=== PATIENT | male | born 1975 | race Caucasian/White ===

== ENCOUNTER 2020-04-04 07:58 | Inpatient (IN) | payer MEDICAID, SELFPAY ==
[~2020-04-04] VITALS: Ht 170.2 cm; Wt 86.3 kg
[2020-04-04] VITALS (7 sets, daily range): BP systolic 113–132; BP diastolic 52–80
--- NOTE | 2020-04-04 08:02 | NUR ---
DR Wilhelm at the bedside for MSE.
[2020-04-04] MEDS ORDERED: NALOXONE HCL 0.4 MG/ML AMPUL ONE ×2 (08:07→08:26)
[2020-04-04] MEDS ORDERED: NALOXONE HCL 0.4 MG/ML AMPUL IV ONE ×3 (08:15→09:00)
[2020-04-04] MEDS ORDERED: ALBUTEROL SULFATE 2.5 MG/3 ML NEBU NEB ONE ×3 (08:15→12:45)
[2020-04-04] MEDS ORDERED: ONDANSETRON 4 MG/2 ML VIAL IV ONE (08:15)
[2020-04-04] MEDS ORDERED: NALOXONE HCL 8 MG in IV NORMAL SALINE 230 ML IV PRN ×2 (08:15→11:30)
[2020-04-04] MEDS ORDERED: ONDANSETRON 4 MG/2 ML VIAL ONE (08:16)
--- NOTE | 2020-04-04 08:20 | NUR ---
Pt is responsive to painful stimuli.
--- NOTE | 2020-04-04 08:33 | NUR ---
After 2nd dose of Narcan, pt coughing up sputum and is more awake.
[2020-04-04 08:40] LABS: ABG SITE RIGHT RADIAL
[2020-04-04 08:43] LABS: BASOPHILS % (AUTO) 0.6 % (0.0-2.0); EOSINOPHILS # (AUTO) 0.2 K/uL (0.0-0.7); EOSINOPHILS % (AUTO) 2.1 % (0.0-7.0); HEMATOCRIT 24.4 % (36.7-47.1); LYMPHOCYTES # (AUTO) 1.5 K/uL (20.0-40.0); LYMPHOCYTES % (AUTO) 18.5 % (20.5-51.5); MEAN CORPUSCULAR HEMOGLOBIN 30.6 uug (23.8-33.4); MEAN CORPUSCULAR HGB CONC 33 g/dL (32.5-36.3); MEAN CORPUSCULAR VOLUME 93.3 fL (73.0-96.2); MONOCYTES # (AUTO) 0.3 K/uL (2.0-10.0); MONOCYTES % (AUTO) 3.3 % (0.0-11.0); NEUTROPHILS # (AUTO) 6.2 K/uL (1.8-8.9); NEUTROPHILS % (AUTO) 75.5 % (38.5-71.5); PLATELET COUNT (AUTO) 169 K/uL (152-348); RED BLOOD CELL COUNT(AUTO) 2.62 MIL/uL (4.06-5.63); WHITE BLOOD COUNT (AUTO) 8.2 K/uL (3.6-10.2)
[2020-04-04] MEDS ORDERED: FUROSEMIDE 40 MG/4 ML VIAL IV ONE (08:45)
[2020-04-04] MEDS ORDERED: CLINDAMYCIN PHOSPHATE IV 600 MG in IV DEXTROSE 5% 100 ML IV ONE (08:45)
[2020-04-04] MEDS ORDERED: levoFLOXacin 750 MG/D5W 150 ML PIGGYBACK IV ONE (08:45)
[2020-04-04 08:52] LABS: CARBON DIOXIDE 28 mmol/L (21-32); CHLORIDE 106 mmol/L (98-107); CREATININE 1.4 mg/dL (0.6-1.3); GLUCOSE 250 mg/dL (74-106); POTASSIUM 4.2 mmol/L (3.5-5.1); UREA NITROGEN, BLOOD 18 mg/dL (7-18)
[2020-04-04] MEDS ORDERED: NALOXONE 2 MG/2 ML SYRINGE ONE (08:52)
[2020-04-04] MEDS: NALOXONE HCL 4 MG in IV NORMAL SALINE 246 ML IV PRN ×2 (08:53→10:25)
[2020-04-04] MEDS ORDERED: FUROSEMIDE 40 MG/4 ML VIAL ONE (08:53)
--- NOTE | 2020-04-04 08:57 | NUR ---
PT RECEIVED ON 100% NRB FOR POSSIBLE ASPIRATION AND OVERDOSE. PT GIVEN HHN TX BLOW BY WITH NRB. ABG DONE AND RESULTS ENDORSED TO DR OCHOA. PER DR OCHOA, FOLLOW UP ABG TO BE DONE AND CONTINUOUS HHN TO BE ADMINISTERED. WILL CONTINUE TO MONITOR
[2020-04-04 08:58] LABS: ALANINE AMINOTRANSFERASE 43 U/L (16-63); ALKALINE PHOSPHATASE 66 U/L (50-136); ASPARTATE AMINOTRANSFERASE 30 U/L (15-37); BILIRUBIN,DIRECT 0.1 mg/dL (0.0-0.2); BILIRUBIN,TOTAL 0.2 mg/dL (0.2-1.0); ETHANOL < 3 MG/DL (0-0); TOTAL PROTEIN, SERUM 7.4 g/dL (6.4-8.2)
[2020-04-04 08:59] LABS: ACETAMINOPHEN < 2.0 ug/mL (10-30)
--- NOTE | 2020-04-04 09:03 | NUR ---
Pt is more awake and able to follow simple directions.
--- NOTE | 2020-04-04 09:05 | NUR ---
After 0900, 3rd dose of Narcan. pt is more awake and verbally responsive.
[2020-04-04 09:08] LABS: *BILIRUBIN,URIN NEGATIVE (NEGATIVE); *BLOOD, URINE 1+ (NEGATIVE); *CLARITY,URINE SLIGHTLY CLOUDY (CLEAR); *COLOR,URINE YELLOW (YELLOW); *KETONES,URINE NEGATIVE (NEGATIVE); *UROBILINOGEN,URINE 0.2 E.U./dl (NORMAL); LEUKOCYTE ESTERASE ,URINE NEGATIVE (NEGATIVE); NITRITE, URINE NEGATIVE (NEGATIVE); PH,URINE 5.5 (5.0-8.0)
[2020-04-04] MEDS ORDERED: CLINDAMYCIN PHOSPHATE 600 MG/4 ML VIAL ONE (09:08)
[2020-04-04] MEDS ORDERED: levoFLOXacin 750MG/D5W 150 ML IV ONE (09:08)
[2020-04-04] MEDS ORDERED: ALBUTEROL SULFATE 2.5 MG/3 ML NEBU ONE ×2 (09:10→12:42)
[2020-04-04 09:12] LABS: UGLUCOSE 2+ (NEGATIVE)
[2020-04-04 09:18] LABS: *AMPHETAMINE, URINE POSITIVE (NEGATIVE); *CANNABINOID, URINE NEGATIVE (NEGATIVE); *COCCAINE, URINE POSITIVE (NEGATIVE); *OPIATE, URINE NEGATIVE (NEGATIVE); *PHENCYCLIDINE SCREEN,URINE POSITIVE (NEGATIVE)
--- NOTE | 2020-04-04 09:30 | NUR ---
NG tube removed by Dr Wilhelm, pt tolorated well.
[2020-04-04 09:54] LABS: ABG BASE EXCESS -5.4 mmol/L; ABG HCO3 22.5 mmol/L; ABG PCO2 53.1 mmHg (35.0-45.0); ABG PH 7.245 (7.350-7.450); ABG PO2 100.1 mmHg (75.0-100.0); ABG TOTAL HEMOGLOBIN 15.8 G/dL (13.5-18.0); COHb 0.7 % (0.5-1.5); MetHb 0.2 % (0.0-1.5)
[2020-04-04] MEDS ORDERED: methylPREDNISolone SOD SUCC 125 MG/2 ML VIAL IV ONE (10:00)
--- NOTE | 2020-04-04 10:10 | NUR ---
Pt place on BIPAP by RT, [id number]/5 RR 15, O2 100%.
[2020-04-04] MEDS ORDERED: methylPREDNISolone SOD SUCC 125 MG/2 ML VIAL ONE (10:11)
--- NOTE | 2020-04-04 10:53 | NUR ---
2nd call placed to [employer] for admin.
[2020-04-04 11:12] LABS: ABG BASE EXCESS -4.6 mmol/L; ABG PCO2 57.7 mmHg (35.0-45.0); ABG PH 7.237 (7.350-7.450); ABG PO2 197.2 mmHg (75.0-100.0); ABG SITE RIGHT RADIAL; ABG TOTAL HEMOGLOBIN 16.8 G/dL (13.5-18.0); COHb 0.6 % (0.5-1.5); MetHb 0.2 % (0.0-1.5); O2Hb 98.7 % (94.0-97.0); VENT MODE BIPAP
[2020-04-04] MEDS ORDERED: ONDANSETRON INJ 8 MG in IV NORMAL SALINE 50 ML IV PRN (11:30)
[2020-04-04] MEDS ORDERED: ACETAMINOPHEN 650 MG SUPP.RECT RC PRN (11:30)
[2020-04-04] MEDS ORDERED: DEXTROSE 50% 50 ML DISP.SYRIN IV PRN (11:30)
[2020-04-04] MEDS ORDERED: IV NS 1000 ML 1,000 ML IV ONE (11:30)
--- NOTE | 2020-04-04 11:42 | NUR ---
POST BIPAP ABG DONE. PER DR OCHOA, INCREASE IPAP TO 20. PT TOLERATING BIPAP FINE
--- NOTE | 2020-04-04 11:50 | NUR ---
Decreased Narcan to 3mg/hr per Md order.
[2020-04-04] MEDS: BLOOD SUGAR DIAGNOSTIC 1 EACH STRIP VI SCH ×3 (12:00→20:57)
--- NOTE | 2020-04-04 12:00 | NUR ---
Paulette Jenkins at the bedside for admit.
--- NOTE | 2020-04-04 12:10 | NUR ---
Narcan decreased to 2mg/hr, per DR frandy segura.
--- NOTE | 2020-04-04 12:20 | NUR ---
Pt able to swallow ice chips w/o difficulty.
--- NOTE | 2020-04-04 12:40 | NUR ---
Pt taken off BIPAP per MD order, placed on simple mask, 02 sat 97%.
--- NOTE | 2020-04-04 12:50 | NUR ---
Narcan decreased to 1mg/hr per Dr Melonie segura.
--- NOTE | 2020-04-04 13:30 | NUR ---
[employer] to be notified upon pt release from hospital, Notify officer Quals at [phone].
--- NOTE | 2020-04-04 13:40 | NUR ---
Pt placed back on BIPAP per Dr wise request.
--- NOTE | 2020-04-04 13:40 | NUR ---
BIPAP setting per Walt,RT, 20/5, RR20,FIO2 50%.
--- NOTE | 2020-04-04 13:45 | NUR ---
PER DR OCHOA PT PLACED BACK ON BIPAP FOR INCREASED WORK OF BREATHING. PT APPEARS MORE COMFORTABLE ON BIPAP.
[2020-04-04 13:48] LABS: BACTERIA,URINE FEW /HPF (NONE SEEN); SQUAMOUS EPITHELIAL CELL,UR FEW /HPF (NONE SEEN); WBC,URINE 0-3 /HPF (0-3)
[2020-04-04 13:49] LABS: COARSE GRANULAR CASTS,URINE FEW /LPF
--- NOTE | 2020-04-04 14:53 | NUR ---
Patient is resting comfortably in bed with eyes closed, NAD noted.
--- NOTE | 2020-04-04 15:27 | NUR ---
Stopped Narcan drip per Dr Wilhelm order.
--- NOTE | 2020-04-04 17:20 | NUR ---
Pt is resting w/ both eyes closed, easily arousable, requested to drink, water given. No swallow diffulty noted.
--- NOTE | 2020-04-04 18:31 | NUR ---
PT REMAINS ON BIPAP WITH SETTINGS ON 20/5/RATE15/50% . PT APPEARS COMFORTABLE TOLERATING BIPAP FINE WITH NO DISTRESS
--- NOTE | 2020-04-04 19:33 | NUR ---
Handsoff report given to SHERYL CCU RANDY.
--- NOTE | 2020-04-04 20:50 | NUR ---
Admitted a 44 y.o male patient to [facility] DX: Acute Hypoxic Respiratory Failure. Patient lethargic, arouses to name. Able to transfer [facility] to bed by himself. Attached to bedside monitor. O2 100% nonrebreather mask during transport; changed to 8L simple mask by Jose C EDWARDS. O2 sat 98-100%. Patient denies SOB. Assessment done. Patient follows simple commands but still very lethargic; unable to carry long conversations. Oriented to name only.
[2020-04-04] MEDS ORDERED: THIAMINE HCL INJ 100 MG in IV DEXTROSE 5% 50 ML IV SCH (21:00)
[2020-04-04] MEDS ORDERED: ENOXAPARIN SODIUM 40 MG/0.4 ML DISP.SYRIN SQ SCH (21:00)
--- NOTE | 2020-04-04 21:00 | NUR ---
Patient asking for ice chips or something to drink. Call placed to Vidhya Jenkins NP re: IV order and patient diet. Orders received. Addendum: 04/04/20 at 2238 by СВЕТЛАНА RASMUSSEN RN Amended: Links added. Addendum: 04/04/20 at 2242 by СВЕТЛАНА RASMUSSEN RN Amended: Links added.
--- NOTE | 2020-04-04 21:15 | NUR ---
IV NS started to patent Saline lock LAC. Ice chips given; no swallowing difficulty. Unable to obtain PMH and other admission data. Patient is lethargic. Unable to carry long conversations and has no recollection of events prior to admission. Addendum: 04/04/20 at 2242 by СВЕТЛАНА RASMUSSEN RN Amended: Links added.
[2020-04-04] MEDS: IV NS 1000 ML 1,000 ML IV PRN (21:19)
[2020-04-04] MEDS: PIPERACILLIN SODIUM/TAZOBACTAM 3.375 G in IV DEXTROSE 5% 50 ML IV SCH (21:31)
[2020-04-05] VITALS (24 sets, daily range): BP systolic 114–149; BP diastolic 48–99
--- NOTE | 2020-04-05 | NUR ---
Sleeping; easily awakens to name. Asking for ice chips when awake. Addendum: 04/05/20 at 0633 by СВЕТЛАНА RASMUSSEN RN Amended: Links added. Addendum: 04/05/20 at 0637 by СВЕТЛАНА RASMUSSEN RN Amended: Links added.
[2020-04-05] MEDS: BLOOD SUGAR DIAGNOSTIC 1 EACH STRIP VI SCH ×6 (00:07→20:13)
[2020-04-05] MEDS: INSULIN REGULAR, HUMAN 300 UNIT/3 ML VIAL SQ PRN ×2 (00:10→12:17)
--- NOTE | 2020-04-05 02:11 | NUR ---
PT WAS ON BI/PAP 20/, RATE 15, 50%, IN ER, THEN O2 TRANSPORT WITH RT ASSIST, TO CCU #1 ,PT ON NRB MASK, WAKING UP IN CCU, THEN TITRATE OXYGEN TO 8L/M C VIA SIMPLE MASK , DOING WELL, TALKING PRETTY CLEAR, SLIGHTLY SLOW ON ANSWERING QUESTIONS, PT COHERENT, SAYING HES BREATHING GOOD, PT NEEDS ENCOURAGEMENT TO TAKE SLOW DEEP BREATHS, WILL MONITOR CLOSELY DURING SHIFT, SAT 97-99%.Diogenes CHAP Addendum: 04/05/20 at 0214 by QUINTEN DOUGLAS RT Amended: Links added.
[2020-04-05] MEDS: PIPERACILLIN SODIUM/TAZOBACTAM 3.375 G in IV DEXTROSE 5% 50 ML IV SCH ×2 (03:13→07:57)
[2020-04-05 05:05] LABS: BASOPHILS % (AUTO) 0.2 % (0.0-2.0); HEMATOCRIT 40.2 % (36.7-47.1); HEMOGLOBIN 13.5 g/dL (12.5-16.3); LYMPHOCYTES % (AUTO) 5.1 % (20.5-51.5); MEAN CORPUSCULAR HEMOGLOBIN 30.6 uug (23.8-33.4); MEAN CORPUSCULAR HGB CONC 34 g/dL (32.5-36.3); MEAN CORPUSCULAR VOLUME 91.1 fL (73.0-96.2); MONOCYTES # (AUTO) 1.1 K/uL (2.0-10.0); MONOCYTES % (AUTO) 5.6 % (0.0-11.0); NEUTROPHILS % (AUTO) 89.1 % (38.5-71.5); PLATELET COUNT (AUTO) 256 K/uL (152-348); RED BLOOD CELL COUNT(AUTO) 4.41 MIL/uL (4.06-5.63); WHITE BLOOD COUNT (AUTO) 19.1 K/uL (3.6-10.2)
[2020-04-05] MEDS ORDERED: IPRATROPIUM BROMIDE 0.5 MG/2.5 ML NEBU NEB PRN (05:15)
[2020-04-05] MEDS ORDERED: ALBUTEROL SULFATE 2.5 MG/3 ML NEBU NEB PRN (05:15)
[2020-04-05 05:20] LABS: BILIRUBIN,TOTAL 0.7 mg/dL (0.2-1.0); CREATININE 1.2 mg/dL (0.6-1.3); MAGNESIUM 1.6 mg/dL (1.8-2.4); TOTAL PROTEIN, SERUM 6.8 g/dL (6.4-8.2)
[2020-04-05 06:18] LABS: ABG BASE EXCESS -0.3 mmol/L; ABG HCO3 25.7 mmol/L; ABG PCO2 47.3 mmHg (35.0-45.0); ABG PH 7.353 (7.350-7.450); ABG PO2 105.4 mmHg (75.0-100.0); ABG SITE RIGHT RADIAL; ABG TOTAL HEMOGLOBIN 13.8 G/dL (13.5-18.0); MetHb 0.2 % (0.0-1.5)
--- NOTE | 2020-04-05 06:36 | NUR ---
Patient still no recollection of events. Reoriented PRN. O2 maintained at 8L simple mask; sat 97-100%. Denies SOB. VS stable. Addendum: 04/05/20 at 0637 by СВЕТЛАНА RASMUSSEN RN Amended: Links added.
--- NOTE | 2020-04-05 07:22 | NUR ---
Desaturates easily when patient takes off O2 mask; advised appropriately.
--- NOTE | 2020-04-05 07:50 | NUR ---
patient is arousable to name, in and out of orientation. doctor raz in the unit to see patient.
[2020-04-05] MEDS: MAGNESIUM SULFATE/D5W 100 ML IV SCH ×2 (08:29→10:19)
[2020-04-05] MEDS: ENOXAPARIN SODIUM 40 MG/0.4 ML DISP.SYRIN SQ SCH (08:30)
[2020-04-05] MEDS: IV NS 1000 ML 1,000 ML IV PRN (08:46)
[2020-04-05] MEDS ORDERED: PANTOPRAZOLE SODIUM 40 MG VIAL IV SCH (09:00)
--- NOTE | 2020-04-05 10:00 | NUR ---
Doctor Doyle in the unit to see patient. please see order history for new orders.
[2020-04-05] MEDS: THIAMINE HCL 100 MG TABLET PO SCH (14:05)
[2020-04-05] MEDS ORDERED: ONDANSETRON 4 MG/2 ML VIAL IV PRN (14:30)
[2020-04-05] MEDS: PIPERACILLIN SODIUM/TAZOBACTAM 3.37 G in IV DEXTROSE 5% 100 ML IV SCH ×2 (14:52→21:45)
--- NOTE | 2020-04-05 15:20 | NUR ---
Was informed from ER that there is an individual trying to obtain patient information. Asked patient that if he has a sister. patient denies having a sister and patient confirms his name is correct and also has his [place] ID in his belongings.
[2020-04-05] MEDS: PANTOPRAZOLE SODIUM 40 MG TABLET.DR PO SCH (17:19)
--- NOTE | 2020-04-05 19:00 | NUR ---
Received patient sleeping in bed on 5L o2 NC SAT 98-100%. Patient is very lethargic however easily awoken. Patient also awakens by himself to use the urinal. Peripheral IV in the left AC ad left wrist. Running NS @ 100mL/Hr. Patient is on telemetry monitoring with SR-ST and stable BP.
--- NOTE | 2020-04-05 21:45 | NUR ---
Patient was able to produce a sputum sample. Sent to the lab for culture.
[2020-04-06] VITALS (14 sets, daily range): BP systolic 125–157; BP diastolic 52–96
[2020-04-06] MEDS: BLOOD SUGAR DIAGNOSTIC 1 EACH STRIP VI SCH ×4 (00:01→12:08)
[2020-04-06] MEDS: IV NS 1000 ML 1,000 ML IV PRN (03:26)
[2020-04-06 05:04] LABS: BASOPHILS # (AUTO) 0.1 K/uL (0.0-8.0); BASOPHILS % (AUTO) 0.5 % (0.0-2.0); EOSINOPHILS # (AUTO) 0.2 K/uL (0.0-0.7); HEMATOCRIT 36.9 % (36.7-47.1); HEMOGLOBIN 12.4 g/dL (12.5-16.3); LYMPHOCYTES # (AUTO) 1.6 K/uL (20.0-40.0); LYMPHOCYTES % (AUTO) 11.1 % (20.5-51.5); MEAN CORPUSCULAR HEMOGLOBIN 30.7 uug (23.8-33.4); MEAN CORPUSCULAR HGB CONC 34 g/dL (32.5-36.3); MEAN CORPUSCULAR VOLUME 91.3 fL (73.0-96.2); MONOCYTES # (AUTO) 0.8 K/uL (2.0-10.0); MONOCYTES % (AUTO) 5.8 % (0.0-11.0); NEUTROPHILS # (AUTO) 11.8 K/uL (1.8-8.9); NEUTROPHILS % (AUTO) 81.6 % (38.5-71.5); PLATELET COUNT (AUTO) 235 K/uL (152-348); RED BLOOD CELL COUNT(AUTO) 4.04 MIL/uL (4.06-5.63); WHITE BLOOD COUNT (AUTO) 14.5 K/uL (3.6-10.2)
[2020-04-06 05:15] LABS: CREATININE 0.9 mg/dL (0.6-1.3); MAGNESIUM 2.1 mg/dL (1.8-2.4); PHOSPHOROUS 1.8 mg/dL (2.5-4.9); POTASSIUM 3.9 mmol/L (3.5-5.1)
[2020-04-06] MEDS: PIPERACILLIN SODIUM/TAZOBACTAM 3.37 G in IV DEXTROSE 5% 100 ML IV SCH ×3 (06:10→22:17)
[2020-04-06] MEDS: PANTOPRAZOLE SODIUM 40 MG TABLET.DR PO SCH ×2 (06:56→16:31)
--- NOTE | 2020-04-06 07:30 | NUR ---
Received patient in bed, arousable to name. On Oxygen at 8L via simple mask sat. 99%. Placed on Nasal canula at 5L sat 99%, denies SOB. No complain of Pain at this time.
[2020-04-06] MEDS: THIAMINE HCL 100 MG TABLET PO SCH (08:16)
[2020-04-06] MEDS: ENOXAPARIN SODIUM 40 MG/0.4 ML DISP.SYRIN SQ SCH (08:25)
--- NOTE | 2020-04-06 09:25 | NUR ---
Received a call from [facility], spoke with Officer Quals, he want to be notified if there is a Discharge Order for the patient, .
[2020-04-06] MEDS ORDERED: SODIUM PHOSPHATE MM 15 MMOL in IV NORMAL SALINE 250 ML IV ONE (11:00)
--- NOTE | 2020-04-06 11:56 | NUR ---
Director Of Clinical Trials consultation: 10:55am: SW completed a social work supervisor assessment with this patient today, through [facility]. The reason for the consultation is substance abuse. Patient is a 44 year old male. Patient was asleep in his bed, however woke up after patient's name was called 3 times. Patient was receptive to meeting with this SW, however was observed to be lethargic. Per patient's medical records, patient was brought in to the ED by ambulance on 04/04 due to a drug overdose. Patient reported to this SW that he overdosed on Fentanyl. Patient stated that he is not sure how he took Fentanyl, stating "i must have mistaken it for something else". Patient reported he uses meth 2-3 times a week. Patient denied use of alcohol or any other illegal drugs. Patient [address] in [address] [place] [address] [address]. Patient stated that he lives alone, and he does not remember who found him at home when he overdosed. However, according to the patient's medical records, patient's roommate had found him and called 911. Patient is independent with his ADL's and states that he works on-and-off in [place]. Patient reported no hx of SI. Patient denied current SI or HI. Patient reported no mental illness. Patient was cooperative with this SW, and responded to all questions appropriately, however at times patient would dose off and this SW had to call his name in order for him to open his eyes and continue with the interview. Patient's affect was flat, appearance was disheveled. Patient was oriented x 2-3. SW explored patient's psychosocial needs, and generated a discussion about substance abuse treatment. Patient stated that he will take a list of resources, but did not want to go to a treatment program at this time. SW to provide resources for the patient.
--- NOTE | 2020-04-06 12:11 | NUR ---
Per patient's medical records, [facility] has been in contact with nursing regarding this patient. SW called Officer Quals, [facility] [place], to follow-up. Officer Quals stated that they would like to be notified of patient's discharge date in order to follow-up with the patient after he is released from the hospital. Officer Quals stated he could not disclose the details of the investigation, but just stated they would need to know when patient is discharged so they can follow-up with him at home. KALLIE expressed understanding, and stated that KALLIE will notify nursing staff. SW notified REYNA Macias and Community Service Coordinator Sara Helton.
[2020-04-06] MEDS: IPRATROPIUM BROMIDE 0.5 MG/2.5 ML NEBU NEB SCH ×2 (14:13→19:30)
[2020-04-06] MEDS: ALBUTEROL SULFATE 2.5 MG/3 ML NEBU NEB SCH ×2 (14:13→19:30)
--- NOTE | 2020-04-06 14:48 | NUR ---
SW provided the following list of resources to the patient: ADDICTION RESOURCES For Drugs and Alcohol [facility] Substance Abuse Helpline([facility])-[facility] Action Family Counseling www.actionfamilycounselingMimetas [place]. [employer] www.[employer].org [place] Cri-Help www.cri-help.org [place] I-ADARP [facility] [place] [facility] [place] www.[facility].org [place] Alcoholics Anonymous -SFV information and meeting and schedules www.aa-intergroup.org Sv-Zapc-Rybqcof https://al-anon.org/ Marijuana Anonymous www.madistrict6.org -SFV listing of meetings Narcotics Anonymous www.na.org SOBER LIVING RESOURCES [facility] www.soberhousing.net Mens Sober Living Homes: A Work in ProgressDelfin [facility], [place] [facility] So[facility] Living [facility]: [place] [facility]
--- NOTE | 2020-04-06 15:40 | NUR ---
Patient BS has been WNL ranging 80-106, Patient eating 75% of Meal tray. Dr. Sanchez made aware with Order D/C Accucheck and changed Acetaminophen supp to PO.
[2020-04-06] MEDS ORDERED: ACETAMINOPHEN 325 MG TABLET PO PRN (15:45)
--- NOTE | 2020-04-06 17:38 | NUR ---
gave report to Kristyn PADILLA.
--- NOTE | 2020-04-06 17:55 | NUR ---
Patient was transferred to Room 310 in stable condition.
--- NOTE | 2020-04-06 18:13 | NUR ---
Pt was transferred to 3rd floor from CCU d/t Drug Overdose. Pt is still drowsy and lethargic, but no s/s of acute distress noted. V/S stable on 4L NC tolerating well and saturating at 99%. Safety measures in place. Call light within reach. Will continue with the plan of care.
--- NOTE | 2020-04-06 19:40 | NUR ---
Patient intermittently sleeping , arousing verbal commands. no sob. using o2 at 4 lpm via nc . No distress noted . IV infusing as ordered . . NSR on monitor with P 90 .Will continue to monitor
[2020-04-07 00:10] VITALS: BP 128/78
[2020-04-07 04:08] VITALS: BP 131/79
[2020-04-07] MEDS: PIPERACILLIN SODIUM/TAZOBACTAM 3.37 G in IV DEXTROSE 5% 100 ML IV SCH (05:13)
[2020-04-07] MEDS: IV NS 1000 ML 1,000 ML IV PRN (05:31)
[2020-04-07] MEDS: PANTOPRAZOLE SODIUM 40 MG TABLET.DR PO SCH (06:34)
--- NOTE | 2020-04-07 07:15 | NUR ---
Patient alert and awake on bed. New IV started on LAC as old was dislodged. Kept clean and dry IV fluid and IV ATB infusing as ordered . NO c/o pain or discomfort noted
[2020-04-07 07:23] LABS: BASOPHILS # (AUTO) 0.1 K/uL (0.0-8.0); BASOPHILS % (AUTO) 0.6 % (0.0-2.0); EOSINOPHILS # (AUTO) 0.5 K/uL (0.0-0.7); EOSINOPHILS % (AUTO) 4.9 % (0.0-7.0); HEMATOCRIT 38.6 % (36.7-47.1); LYMPHOCYTES # (AUTO) 1.4 K/uL (20.0-40.0); LYMPHOCYTES % (AUTO) 12.9 % (20.5-51.5); MEAN CORPUSCULAR HEMOGLOBIN 30.7 uug (23.8-33.4); MEAN CORPUSCULAR HGB CONC 34 g/dL (32.5-36.3); MEAN CORPUSCULAR VOLUME 91.1 fL (73.0-96.2); MONOCYTES # (AUTO) 0.6 K/uL (2.0-10.0); MONOCYTES % (AUTO) 5.6 % (0.0-11.0); NEUTROPHILS # (AUTO) 8.2 K/uL (1.8-8.9); PLATELET COUNT (AUTO) 257 K/uL (152-348); RED BLOOD CELL COUNT(AUTO) 4.24 MIL/uL (4.06-5.63); WHITE BLOOD COUNT (AUTO) 10.8 K/uL (3.6-10.2)
[2020-04-07 07:25] LABS: CREATININE 0.9 mg/dL (0.6-1.3); MAGNESIUM 2.3 mg/dL (1.8-2.4); PHOSPHOROUS 2.3 mg/dL (2.5-4.9); POTASSIUM 3.6 mmol/L (3.5-5.1)
[2020-04-07] MEDS: IPRATROPIUM BROMIDE 0.5 MG/2.5 ML NEBU NEB SCH (07:35)
[2020-04-07] MEDS: ALBUTEROL SULFATE 2.5 MG/3 ML NEBU NEB SCH (07:35)
--- NOTE | 2020-04-07 08:30 | NUR ---
RECEIVED PATIENT ASLEEP IN BED, EASILY AROUSABLE. ORIENTED X 4. SR ON MONITOR. VSS. ABLE TO AMBULATE TO BATHROOM AND USES URINAL. IV ON RIGHT AC 20 G, FLUSHED AND PATENT. NS RUNNING PER MD ORDER. DENIES PAIN OR SOB. NO S/S OF DISTRESS NOTED AT THIS TIME. SAFETY PRECAUTIONS IN PLACE. WILL CONTINUE TO MONITOR.
[2020-04-07 08:38] LABS: ABG BASE EXCESS -1.9 mmol/L; ABG HCO3 23.1 mmol/L; ABG PCO2 40.2 mmHg (35.0-45.0); ABG PH 7.377 (7.350-7.450); ABG PO2 88.2 mmHg (75.0-100.0); ABG SITE RIGHT RADIAL; ABG TOTAL HEMOGLOBIN 14.2 G/dL (13.5-18.0); COHb 1.1 % (0.5-1.5); O2Hb 95.8 % (94.0-97.0)
[2020-04-07] MEDS: THIAMINE HCL 100 MG TABLET PO SCH (08:41)
[2020-04-07] MEDS: ENOXAPARIN SODIUM 40 MG/0.4 ML DISP.SYRIN SQ SCH ×2 (08:41→08:44)
--- NOTE | 2020-04-07 09:00 | NUR ---
PATIENT REFUSED LOVENOX SQ. EXPLAINED PURPOSE OF MEDICATION TO PATIENT, STILL REFUSED.
[2020-04-07 11:58] VITALS: BP 137/72
--- NOTE | 2020-04-07 12:34 | NUR ---
TRIED TO REACH DR HARRIS FOR PSYCH EVAL RE; SARAI OD QUESTIONABLE SUICIDAL ATTEMPT. MESSAGE LEFT ON ANSWERING SERVICE
--- NOTE | 2020-04-07 13:00 | NUR ---
PATIENT SUDDENLY GOT OUT OF BED, WENT TO THE BATHROOM AND PULLED OUT IV LINE AND NEEDLE, "I NEED TO GET OUT OF HERE. I NEED TO TAKE CARE OF MY MORTGAGE AND CALL MY FAMILY. NO ONE IS CALLING ME." PER RECORD, PATIENT DOES NOT WANT ANYONE TO BE NOTIFIED OF HIS CONDITIONS.
[2020-04-07] MEDS ORDERED: LORAZEPAM 2 MG/1 ML VIAL IV PRN (13:15)
--- NOTE | 2020-04-07 13:15 | NUR ---
NANETTE CARPENTER, NUTRITION PROGRAM INSTRUCTOR HOSPITALIST ON THE SCENE, WENT TO TALK TO PATIENT. EXPLAINED ADVANTAGES OF STAYING UNTIL SEEN BY PSYCHIATRIST. PATIENT BECAME AGITATED, BELLIGERENT AND INSISTS TO GO. CRISIS TEAM NOTIFIED BY CHARGE NURSE. NETWORK INFRASTRUCTURE ARCHITECT ALSO NOTIFIED.
--- NOTE | 2020-04-07 13:20 | NUR ---
PATIENT RAN OUT OF THE UNIT, BECAME MORE OUT OF CONTROL. RAN TO THE BACK OF THE HOSPITAL AND JUMPED THE BACK FENCE, PER SECURITY. TRIED TO CALL OFFICER QUAL OF [facility] [phone], PER ADVICE THAT WHEN PATIENT GETS DISCHARGED, [facility] NEEDS TO BE NOTIFIED. PHONE NUMBER UNABLE TO CONNECT. CALLED [place] [facility] [phone], LEFT MESSAGE WITH ANSWERING SERVICE.
== END 2020-04-07 13:24 | disposition left against medical advice (07) | DRG 917 ==
LOC: ER 08:01 → CCU 19:45 → TELE3 04-06 17:57
PROVIDERS: ADMIT Nurse Practitioner Acute Care; ATTEND Nurse Practitioner Acute Care
PROC: 5A09357 Assistance with Respiratory Ventilation, Less than 24 Consecutive Hours, Continuous Positive Airway Pressure (ICD-10-PCS; principal; 2020-04-04)
DX: T40.991A Poisoning by other psychodysleptics [hallucinogens], accidental (unintentional), initial encounter (principal); G92 Toxic encephalopathy; J96.02 Acute respiratory failure with hypercapnia; J96.01 Acute respiratory failure with hypoxia; J69.0 Pneumonitis due to inhalation of food and vomit; N17.9 Acute kidney failure, unspecified; T43.621A Poisoning by amphetamines, accidental (unintentional), initial encounter; T40.5X1A Poisoning by cocaine, accidental (unintentional), initial encounter; F16.10 Hallucinogen abuse, uncomplicated; F14.10 Cocaine abuse, uncomplicated; F15.10 Other stimulant abuse, uncomplicated; Y92.003 Bedroom of unspecified non-institutional (private) residence as the place of occurrence of the external cause; D64.9 Anemia, unspecified; E03.9 Hypothyroidism, unspecified; R73.9 Hyperglycemia, unspecified; F10.10 Alcohol abuse, uncomplicated
CPT/HCPCS: 36415; 36600; 51702; 70030-TC; 71045; 83605; 83735; 84100; 84443; 85025; 85730; 87070; 87086; 93005; 94640; 94660; 94664; A4663; C9113; G0378; G0480; J1650; J1815; J1940; J1956; J2310; J2405; J2543; J2930; J3411; J3475; J3490; J3590; J7030; J7050; J7060